=== PATIENT | female | born 1955 | race Caucasian/White ===

== ENCOUNTER 2019-10-12 13:05 | Outpatient (CLI) | payer MEDICARE, SELFPAY ==
--- NOTE | 2019-10-12 13:56 | MR_ITS ---
WS: [id number] MRI LUMBAR SPINE NONCONTRAST HISTORY: LOW BACK PAIN COMPARISON: None available. TECHNIQUE: Sagittal and axial multisequence imaging is submitted. Moderate increase in thoracic kyphosis. Diffuse degenerative disc disease throughout the thoracic spi ne. Small node defect superior endplate of T10. Posterior lumbar alignment is normal. Mild disc desiccation throughout, most significant at L5-S1. Sm all amount of marrow edema in the adjacent endplates of L5 and S1. Conus terminates normally at L1-2 disc level. L1-L2: Mild facet arthropathy without stenosis. L2-L3: Mild facet and ligamentum flavum arthropathy and mild annular disc bulging without stenosis. L3-L4: Mild ligamentum flavum arthropathy and facet arthropathy. There is very mild narrowing of the thecal sac, subarticular recesses and foramen. L4-L5: Moderate ligamentum flavum hypertrophy and facet arthropathy. Narrowing of the thecal sac and transverse diameter resulting in subarticular recess narrowing. There is mild central, subarticular r ecess and foraminal narrowing. L5-S1: Diffuse annular disc bulging and osteophytic ridging. Mild bilateral foraminal stenosis. There is very mild encroachment upon the L5 nerve roots. Small RIGHT renal cyst measures 8 mm. MR/MR lumbar spine wo con* [id number] IMPRESSION: 1. Marrow edema in the endplates of L5-S1 with moderate degenerative disc dise ase. 2. Mild bilateral foraminal stenosis at L5-S1 due to disc and facet disease. 3. Mild central, subarticular recess and foraminal narrowing at L3-4 and L4-5 predominantly due to disc disease and facet arthropathy.
--- NOTE | 2019-10-12 13:56 | XR_ITS ---
WS: [id number] LATERAL LUMBAR SPINE: 3 view. Lateral radiographs are performed in upright neutral, flexion and extension to the patient's toleranc e. HISTORY: LOW BACK PAIN COMPARISON: None available. Poor visualization vertebral bodies with osteopenia and body habitus. Posterior alignment is normal. No fractures are identified. Very little movement with flexion and extension. No instability. XR/XR lumbar spine f/e only [id number] IMPRESSION: No lumbar spine instability.
== END 2019-10-12 13:06 | disposition home or self-care (01) ==
LOC: RADWPI 13:20
PROVIDERS: Family Provider Family Medicine; PCP Family Medicine; Visit Provider Nurse Practitioner
DX: M48.07 Spinal stenosis, lumbosacral region (principal); M47.897 Other spondylosis, lumbosacral region; M54.5 Low back pain; M25.551 Pain in right hip
CPT/HCPCS: 72120; 72148

== ENCOUNTER 2020-02-26 08:45 | Outpatient (CLI) | payer MEDICARE, SELFPAY ==
[2020-02-26 09:44] LABS: Basophils # 0.1 10^3/uL (0.0-0.1); Eosinophils # 0.2 10^3/uL (0.0-0.8); Eosinophils % 3.7 %; Hematocrit 42.7 % (37.0-47.0); Hemoglobin 13.7 g/dL (11.5-15.3); Lymphocytes # 1.2 10^3/uL (0.8-4.8); Mean Corpuscular HGB Conc 32.1 g/dL (30.0-36.0); Mean Corpuscular Hemoglobin 30.8 pg (28.0-34.0); Mean Platelet Volume 9.1 fL (7.4-10.4); Monocytes # 0.4 10^3/uL (0.2-0.9); Monocytes % 6.4 %; Neutrophils # 4.06 10^3/uL (1.8-7.7); Neutrophils % 68.7 %; Nucleated Red Blood Cells % 0 %; Platelet Count 217 10^3/cmm (130-400); Red Blood Count 4.45 10^6/uL (4.1-5.3); Red Cell Distribution Width 12.7 % (12.1-15.1); White Blood Count 5.9 10^3/uL (4.0-10.0)
--- NOTE | 2020-02-26 09:50 | ECG_ITS ---
[facility] Test Date: 2020-02-26 Pat Name: Kate Michelle Department: Room: Gender: Female [employer]: : [id number] Requested By: Jus Reynolds Order Number: [id number] Kendell MD: Sudhakar Flores M.D. Measurements Intervals Leon Rate: 76 P: 66 WY: 149 QRS: 54 QRSD: 77 T: 65 QT: 390 QTc: 439 Interpretive Statements SINUS RHYTHM No previous ECG available for comparison Electronically Signed On 02-26-2020 16:31:40 CDT by Sudhakar Flores M.D. [id number] f
[2020-02-26 10:03] LABS: Alanine Aminotransferase 10 U/L (0-33); Albumin Level 3.9 g/dL (3.5-5.2); Alkaline Phosphatase 96 IU/L (35-105); Anion Gap 12.7 (5-19); Aspartate Amino Transferase 19 U/L (0-32); Blood Urea Nitrogen 9 mg/dL (8-23); Calcium 8.1 mg/dL (8.5-10.5); Carbon Dioxide 24 mmol/L (22-29); Chloride 100 mmol/L (98-107); Globulin 2.7 g/dL (1.3-4.6); Glomerular Filtration Rate 72.2 mL/min (90-130); Glucose 102 mg/dL (65-115); Osmolality Calculated 270 mOsm/kg (285-295); Potassium 4.7 mmol/L (3.5-5.1); Sodium 132 mmol/L (136-145); Total Bilirubin 0.2 mg/dL (0.15-1.2); Total Protein 6.6 g/dL (6.6-8.7)
== END 2020-02-26 08:46 | disposition home or self-care (01) ==
LOC: RT 08:48
PROVIDERS: Family Provider Family Medicine; PCP Family Medicine; Visit Provider Specialist
DX: Z01.810 Encounter for preprocedural cardiovascular examination (principal)
CPT/HCPCS: 36415; 80053; 85025; 93005

== ENCOUNTER 2021-04-22 09:20 | Outpatient (CLI) | payer MEDICARE, SELFPAY ==
--- NOTE | 2021-04-22 09:32 | CT_ITS ---
WS: [id number] CT NECK TECHNIQUE: Contrast-enhanced CT of the neck with coronal and sagittal reformatted images. CLINICAL INFORMATION: DYSPHAGIA COMPARISON: None. DLP: 513.[address] scans at [facility] use at least one of these dose optimization techniques: automated e xposure control; mA and/or kV adjustment per patient size (includes targeted exams where dose is matc hed to clinical indication); or iterative reconstruction. FINDINGS: Parotid glands are normal. Normal submandibular glands. A few prominent cervical lymph nodes the larg est left jugulodigastric measuring 9 mm within normal limits. No pathologic lymphadenopathy. Normal posterior nasopharynx. Normal parapharyngeal fat. Normal vallecula and piriform sinuses. [place] l vocal cords. Normal subglottic airway. Small bilateral thyroid nodules. Bilateral breast implants. Chronic emphysematous changes in the lung apices. Prominent lymph nodes in the left axilla partially visualized measuring up to 10 mm. Grade 1 anterolisthesis C7 on T1 measuring 2.8 mm. Disc space narro wing worse at C5-C6 and C6-C7. CT/CT neck w con* [id number] IMPRESSION: 1. Normal salivary glands. 2. No evidence of supraglottic or glottic mass. Normal subglottic airway. Norm al glottis. 3. A few prominent cervical lymph nodes not pathologically enlarged. 4. A few small nodules in the thyroid. 5. Moderate spondylitic changes cervical spine with grade 1 anterolisthesis C7 on T1. 6. A few prominent lymph nodes in the left axilla partially visualized measuri ng up to 10 mm. This can be further evaluated chest CT.
--- NOTE | 2021-04-22 09:35 | FL_ITS ---
WS: [id number] ESOPHAGRAM TECHNIQUE: Double contrast examination was performed with thin and thick barium. Upright and HOSKINS imag es were obtained. CLINICAL INFORMATION: DYSPHAGIA COMPARISON: None. FINDINGS: Swallowing: No visualized aspiration or penetration. Esophagus: Moderate esophageal dysmotility with delayed emptying. Standing column of contrast on the upright view. Tertiary contractions in the mid and distal esophagus. No high-grade stricture or obstr ucting mass. Gastroesophageal reflux: Reflux and delayed emptying visualized on the supine imaging. Small esophage al hiatal hernia. Fluoroscopy time: 2.3 minutes. FL/FL barium swallow [id number] IMPRESSION: 1. No visualized aspiration or penetration. 2. Moderate esophageal dysmotility with delayed emptying in the upright and [place] positions. 3. Tertiary contractions in the mid and distal esophagus with delayed emptying . 4. No evidence of esophageal stricture or obstructing mass. 5. Moderate spontaneous esophageal reflux visualized in the supine imaging wit h small esophageal hiatal hernia.
[2021-04-22 09:57] LABS: Blood Urea Nitrogen 11 mg/dL (8-23); Glomerular Filtration Rate 100.3 mL/min (90-130)
[2021-04-22] MEDS: iohexol 300 mg/mL 100 mL Btl IV (10:06)
== END 2021-04-22 09:21 | disposition home or self-care (01) ==
PROVIDERS: PCP Family Medicine; Visit Provider Specialist
DX: R13.10 Dysphagia, unspecified (principal); R49.0 Dysphonia
CPT/HCPCS: 70491; 74220; 82565; 84520; Q9967